=== PATIENT | male | born 1960 | race Caucasian/White ===

== ENCOUNTER 2017-03-09 22:28 | Emergency (ER) | payer OTHER ==
[~2017-03-09] VITALS: Ht 185.4 cm; Wt 108.0 kg
[~2017-03-09 22:28] MED LIST: BENTYL 10 MG CA10 M1 PO; CLONAZEPAM 0.50.5 M1 PO; COLACE 100 MG100 MG PO; ERYTHROMYCIN E3.5 G3 OPHTHALMIC; MIRALAX17 GM PO; NOHOMEMEDICATIONS; PERCOCET PO; VITAMIN D 5050000 I1 PO
[2017-03-09 22:56] LABS: URINE BILIRUBIN NEGATIVE (Negative); URINE BLOOD NEGATIVE (Negative); URINE COLOR YELLOW; URINE GLUCOSE-RANDOM* NEGATIVE (Negative); URINE KETONES NEGATIVE (Negative); URINE NITRITE NEGATIVE (Negative); URINE PROTEIN (DIPSTICK) NEGATIVE (Negative); URINE UROBILINOGEN 0.2 E.U./dl (0.2-1.0)
[2017-03-09 23:16] LABS: BASOPHILS 0.4 % (0.0-2.0); EOSINOPHILS 1.1 % (0.0-3.0); HEMATOCRIT 44.6 % (42.0-52.0); HEMOGLOBIN 15.4 gm/dL (14.0-18.0); LYMPHOCYTES 11.9 % (24.0-44.0); MCH 32.5 pg (26.0-34.0); MCHC 34.5 g/dL (28.0-37.0); MCV 94.4 fL (80.0-100.0); MONOCYTES 8.7 % (1.0-8.0); PLATELET COUNT 214 thou/uL (150-400); POLYS 77.9 % (36.0-66.0); RBC 4.72 mil/uL (4.50-6.00); RDW 13.3 % (10.5-14.5); WBC 6.5 thou/uL (4.0-11.0)
[2017-03-09 23:22] LABS: ANION GAP 7 mmol/L (7-16); BUN 14 mg/dL (7-18); CALCIUM 9.3 mg/dL (8.5-10.1); CHLORIDE 101 mmol/L (98-107); CO2 32 mmol/L (21-32); GLUCOSE 112 mg/dL (74-106); POTASSIUM 3.8 mmol/L (3.5-5.1); SODIUM 140 mmol/L (136-145)
[2017-03-09 23:28] LABS: ALBUMIN 3.7 g/dL (3.4-5.0); ALKALINE PHOSPHATASE 67 U/L (46-116); DIRECT BILIRUBIN < 0.1 mg/dL (<0.1-0.3); SGOT 22 U/L (15-37); SGPT 39 U/L (30-65); TOTAL BILIRUBIN 0.7 mg/dL (<0.1-1.0)
[2017-03-09 23:29] LABS: MANUAL DIFF NO
[2017-03-10] MEDS ORDERED: CITRATE OF MAG296 ML PO (00:32)
[2017-03-10] MEDS ORDERED: SENOKOT-S1 TA1 PO (00:32)
[2017-03-10] MEDS ORDERED: PHENERGAN 25 MG25 M1 PO (00:39)
== END 2017-03-10 00:32 | disposition home or self-care (01) ==
LOC: ER 22:28
PROVIDERS: Emergency Medicine
DX: R10.9 Unspecified abdominal pain (principal); R11.2 Nausea with vomiting, unspecified; Z90.49 Acquired absence of other specified parts of digestive tract; Z98.890 Other specified postprocedural states

== ENCOUNTER 2017-05-12 18:01 | Emergency (ER) | payer OTHER ==
[~2017-05-12] VITALS: Ht 188 cm; Wt 108.0 kg
[~2017-05-12 18:01] MED LIST changes: +CITRATE OF MAG296 ML PO; +PHENERGAN 25 MG25 M1 PO; +SENOKOT-S1 TA1 PO
[2017-05-12] MEDS ORDERED: MEDROLDOSEPACK PO (19:57)
[2017-05-12] MEDS ORDERED: IBUPROFEN 600600 M1 PO (19:57)
[2017-05-12] MEDS ORDERED: NORCO 5-325 TA1 EACH PO (19:57)
[2017-05-12] MEDS ORDERED: TIZANIDINE HCL4 MG PO (19:57)
== END 2017-05-12 20:05 | disposition home or self-care (01) ==
LOC: ER 18:01
DX: S39.012A Strain of muscle, fascia and tendon of lower back, initial encounter (principal); M54.42 Lumbago with sciatica, left side; Z98.890 Other specified postprocedural states; Z90.49 Acquired absence of other specified parts of digestive tract; W06.XXXA Fall from bed, initial encounter; Y93.89 Activity, other specified; Y92.89 Other specified places as the place of occurrence of the external cause; Y99.8 Other external cause status

== ENCOUNTER 2018-08-07 11:42 | Emergency (ER) | payer OTHER ==
[~2018-08-07] VITALS: Ht 185.4 cm; Wt 113.4 kg
[~2018-08-07 11:42] MED LIST changes: +IBUPROFEN 600600 M1 PO; +MEDROLDOSEPACK PO; +NORCO 5-325 TA1 EACH PO; +TIZANIDINE HCL4 MG PO
[2018-08-07 12:07] LABS: ABSOLUTE NEUTROPHILS 10.1 thou/uL (1.4-8.2); BASOPHILS 0.2 % (0.0-2.0); EOSINOPHILS 0.4 % (0.0-3.0); HEMATOCRIT 47.9 % (42.0-52.0); HEMOGLOBIN 16.5 gm/dL (14.0-18.0); LYMPHOCYTES 2.1 % (24.0-44.0); MCH 33.1 pg (26.0-34.0); MCHC 34.5 g/dL (28.0-37.0); MCV 96.1 fL (80.0-100.0); MONOCYTES 5.2 % (1.0-8.0); PLATELET COUNT 205 thou/uL (150-400); POLYS 92.1 % (36.0-66.0); RBC 4.98 mil/uL (4.50-6.00); RDW 12.9 % (10.5-14.5); WBC 10.9 thou/uL (4.0-11.0)
[2018-08-07] MEDS ORDERED: NYQUIL PO (12:11)
[2018-08-07 12:15] LABS: ANION GAP 7 mmol/L (7-16); BUN 16 mg/dL (7-18); CALCIUM 9.4 mg/dL (8.5-10.1); CHLORIDE 102 mmol/L (98-107); CO2 27 mmol/L (21-32); CREATININE 1.1 mg/dL (0.7-1.3); GLUCOSE 156 mg/dL (74-106); POTASSIUM 4.5 mmol/L (3.5-5.1); SODIUM 136 mmol/L (136-145)
[2018-08-07 12:23] LABS: ALBUMIN 3.9 g/dL (3.4-5.0); LIPASE 113 U/L (73-393); SGOT 23 U/L (15-37); SGPT 42 U/L (30-65); TOTAL BILIRUBIN 0.9 mg/dL (<0.1-1.0); TOTAL PROTEIN 7.2 g/dL (6.4-8.2); TROPONIN-I <0.06 ng/mL (<0.06)
[2018-08-07 13:05] LABS: URINE BILIRUBIN NEGATIVE (Negative); URINE BLOOD NEGATIVE (Negative); URINE CLARITY CLEAR; URINE COLOR YELLOW; URINE GLUCOSE-RANDOM* NEGATIVE (Negative); URINE KETONES TRACE (Negative); URINE LEUKOCYTES-REFLEX NEGATIVE (Negative); URINE NITRITE-REFLEX NEGATIVE (Negative); URINE PROTEIN (DIPSTICK) NEGATIVE (Negative); URINE UROBILINOGEN 0.2 E.U./dl (0.2-1.0)
[2018-08-07 13:28] LABS: SSA (PROTEIN CONFIRMATORY) NEGATIVE (Negative)
--- NOTE | 2018-08-07 13:43 | EKG ---
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
[2018-08-07 15:45] VITALS: BP 114/58
== END 2018-08-07 14:50 | disposition home or self-care (01) ==
LOC: ER 11:42
PROVIDERS: Nurse Practitioner Family
DX: R19.7 Diarrhea, unspecified (principal); R11.2 Nausea with vomiting, unspecified

== ENCOUNTER 2018-09-10 17:28 | Emergency (ER) | payer OTHER ==
[~2018-09-10] VITALS: Ht 185.4 cm; Wt 105.7 kg
[~2018-09-10 17:28] MED LIST changes: +NYQUIL PO
[2018-09-10 19:29] LABS: HEMOGLOBIN 15.5 gm/dL (14.0-18.0); MCH 33.7 pg (26.0-34.0); MCHC 35.2 g/dL (28.0-37.0); MCV 95.8 fL (80.0-100.0); PLATELET COUNT 184 thou/uL (150-400); RBC 4.59 mil/uL (4.50-6.00); RDW 12.6 % (10.5-14.5); WBC 4.9 thou/uL (4.0-11.0)
[2018-09-10 19:46] LABS: CALCIUM 9.5 mg/dL (8.5-10.1); POTASSIUM 4.1 mmol/L (3.5-5.1)
[2018-09-10 19:52] LABS: ALBUMIN 3.6 g/dL (3.4-5.0); TOTAL BILIRUBIN 0.4 mg/dL (<0.1-1.0); TOTAL PROTEIN 6.8 g/dL (6.4-8.2)
[2018-09-10] MEDS ORDERED: ZPAK PO (20:18)
[2018-09-10] MEDS ORDERED: PROMETHAZINE V118 M1 PO (20:18)
[2018-09-10] MEDS ORDERED: MUCINEX DM ER1 EACH PO (20:18)
[2018-09-10 20:19] LABS: ABSOLUTE NEUTROPHILS 4.1 thou/uL (1.4-8.2); ANISOCYTOSIS 1+
[2018-09-10 20:34] VITALS: BP 130/58
[2018-09-11] MEDS ORDERED: TESSALON PERLE100 MG PO (07:57)
== END 2018-09-10 20:35 | disposition home or self-care (01) ==
LOC: ER 17:28
PROVIDERS: Physician Assistant
DX: J20.8 Acute bronchitis due to other specified organisms (principal); B96.89 Other specified bacterial agents as the cause of diseases classified elsewhere; Z90.49 Acquired absence of other specified parts of digestive tract; Z98.52 Vasectomy status

== ENCOUNTER 2018-09-11 05:47 | Emergency (ER) | payer OTHER ==
[~2018-09-11] VITALS: Ht 185.4 cm; Wt 104.3 kg
[~2018-09-11 05:47] MED LIST changes: +MUCINEX DM ER1 EACH PO; +PROMETHAZINE V118 M1 PO; +ZPAK PO
[2018-09-11 06:33] LABS: ABSOLUTE NEUTROPHILS 4.8 thou/uL (1.4-8.2); BASOPHILS 0.4 % (0.0-2.0); EOSINOPHILS 0.5 % (0.0-3.0); HEMATOCRIT 43.4 % (42.0-52.0); HEMOGLOBIN 14.9 gm/dL (14.0-18.0); LYMPHOCYTES 7.4 % (24.0-44.0); MCH 32.9 pg (26.0-34.0); MCHC 34.3 g/dL (28.0-37.0); PLATELET COUNT 173 thou/uL (150-400); POLYS 81.7 % (36.0-66.0); RBC 4.52 mil/uL (4.50-6.00); RDW 13.1 % (10.5-14.5); WBC 5.9 thou/uL (4.0-11.0)
[2018-09-11 06:47] LABS: CREATININE 1.1 mg/dL (0.7-1.3); POTASSIUM 4.1 mmol/L (3.5-5.1)
[2018-09-11 06:54] LABS: ALBUMIN 3.6 g/dL (3.4-5.0); DIRECT BILIRUBIN 0.1 mg/dL (<0.1-0.3); TOTAL BILIRUBIN 0.5 mg/dL (<0.1-1.0); TOTAL PROTEIN 6.8 g/dL (6.4-8.2)
[2018-09-11] MEDS ORDERED: TESSALON PERLE100 MG PO (07:57)
[2018-09-11 08:00] LABS: URINE BILIRUBIN NEGATIVE (Negative); URINE BLOOD NEGATIVE (Negative); URINE CLARITY CLEAR; URINE COLOR YELLOW; URINE GLUCOSE-RANDOM* NEGATIVE (Negative); URINE KETONES NEGATIVE (Negative); URINE LEUKOCYTES-REFLEX NEGATIVE (Negative); URINE NITRITE-REFLEX NEGATIVE (Negative); URINE PROTEIN (DIPSTICK) NEGATIVE (Negative); URINE UROBILINOGEN 0.2 E.U./dl (0.2-1.0)
[2018-09-11 08:01] VITALS: BP 115/72
--- NOTE | 2018-09-11 08:18 | EKG ---
[place] [address] [address] [place] [address] ELECTROCARDIOGRAM REPORT Name: PALMIRA NUÑEZ Room #: DEP Vito#: [id number] Admission: 09/11/18 Attend Phys: Discharge: 09/11/18 Date of : 56 Report #: [id number] THIS REPORT FOR: //name// [facility] ED Test Date: 2018-09-11 Test Time: 06:58:44 Pat Name: PALMIRA NUÑEZ Department: Room: Gender: Court Stenographer: : 1960 Requested By: Kwesi Hartman Order Number: [id number] MD: Umair Gutierres Measurements Intervals [place] Rate: 82 P: 47 [place]: 165 QRS: -17 QRSD: 89 T: 33 QT: 351 QTc: 410 Interpretive Statements Sinus rhythm Atrial premature complexes Borderline left axis deviation Abnormal R-wave progression, early transition Borderline T wave abnormalities Compared to ECG 08/07/2018 11:51:28 Atrial premature complex(es) now present Electronically Signed On 09-11-2018 8:18:33 PHOTOGRAPHERS' MODEL by Umair Gutierres [email or web address] <ELECTRONICALLY SIGNED> By: Umair Gutierres MD, [facility] 09/11/18 08 7 Umair Gutierres MD, [facility] /EPI
== END 2018-09-11 08:01 | disposition home or self-care (01) ==
LOC: ER 05:47
PROVIDERS: Emergency Medicine
DX: J22 Unspecified acute lower respiratory infection (principal); Z98.52 Vasectomy status; Z90.49 Acquired absence of other specified parts of digestive tract

== ENCOUNTER 2018-11-21 17:36 | Emergency (ER) | payer OTHER ==
[~2018-11-21] VITALS: Ht 185.4 cm; Wt 108.0 kg
[~2018-11-21 17:36] MED LIST changes: +TESSALON PERLE100 MG PO
[2018-11-21] MEDS ORDERED: TESSALON PERLE100 MG PO (20:17)
[2018-11-21] MEDS ORDERED: GUAIFEN-CODEINE10 ML PO (20:17)
[2018-11-21 20:18] VITALS: BP 150/86
== END 2018-11-21 20:27 | disposition home or self-care (01) ==
LOC: ER 17:36
DX: J06.9 Acute upper respiratory infection, unspecified (principal); Z90.49 Acquired absence of other specified parts of digestive tract

== ENCOUNTER 2019-01-14 12:28 | Emergency (ER) | payer OTHER ==
[~2019-01-14] VITALS: Ht 185.4 cm; Wt 108.9 kg
[~2019-01-14 12:28] MED LIST changes: +GUAIFEN-CODEINE10 ML PO
[2019-01-14 12:57] LABS: ABSOLUTE NEUTROPHILS 3.5 thou/uL (1.4-8.2); BASOPHILS 0.5 % (0.0-2.0); EOSINOPHILS 1.4 % (0.0-3.0); HEMATOCRIT 46.5 % (42.0-52.0); LYMPHOCYTES 17.5 % (24.0-44.0); MCH 32.3 pg (26.0-34.0); MCHC 34.4 g/dL (28.0-37.0); MCV 93.9 fL (80.0-100.0); MONOCYTES 7.2 % (1.0-8.0); PLATELET COUNT 210 thou/uL (150-400); POLYS 73.4 % (36.0-66.0); RBC 4.95 mil/uL (4.50-6.00); RDW 13.1 % (10.5-14.5); WBC 4.7 thou/uL (4.0-11.0)
[2019-01-14 13:04] LABS: CALCIUM 9.3 mg/dL (8.5-10.1); POTASSIUM 4.3 mmol/L (3.5-5.1)
[2019-01-14 13:11] LABS: ALBUMIN 3.6 g/dL (3.4-5.0); TOTAL BILIRUBIN 0.9 mg/dL (<0.1-1.0); TOTAL PROTEIN 6.8 g/dL (6.4-8.2)
[2019-01-14 13:34] LABS: URINE BILIRUBIN NEGATIVE (Negative); URINE BLOOD NEGATIVE (Negative); URINE CLARITY CLEAR; URINE COLOR YELLOW; URINE GLUCOSE-RANDOM* NEGATIVE (Negative); URINE KETONES NEGATIVE (Negative); URINE LEUKOCYTES-REFLEX NEGATIVE (Negative); URINE NITRITE-REFLEX NEGATIVE (Negative); URINE PROTEIN (DIPSTICK) NEGATIVE (Negative)
[2019-01-14] MEDS ORDERED: COMPAZINE10 MG PO (13:53)
[2019-01-14] MEDS ORDERED: BENTYL 20 MG TA20 M1 PO (13:53)
[2019-01-14] MEDS ORDERED: ZOFRAN ODT4 MG PO (13:53)
[2019-01-14 14:15] VITALS: BP 122/60
== END 2019-01-14 14:26 | disposition home or self-care (01) ==
LOC: ER 12:28
PROVIDERS: Emergency Medicine
DX: K52.9 Noninfective gastroenteritis and colitis, unspecified (principal); Z98.52 Vasectomy status; Z90.49 Acquired absence of other specified parts of digestive tract

== ENCOUNTER 2019-02-01 12:37 | Emergency (ER) | payer OTHER ==
[~2019-02-01] VITALS: Ht 180.3 cm; Wt 97.1 kg
[~2019-02-01 12:37] MED LIST changes: +BENTYL 20 MG TA20 M1 PO; +COMPAZINE10 MG PO; +ZOFRAN ODT4 MG PO
[2019-02-01] MEDS ORDERED: AUGMENTIN 875-1 EACH PO (14:32)
[2019-02-01 14:50] VITALS: BP 134/86
== END 2019-02-01 14:50 | disposition home or self-care (01) ==
LOC: ER 12:37
DX: S90.852A Superficial foreign body, left foot, initial encounter (principal); Z90.49 Acquired absence of other specified parts of digestive tract; Z98.52 Vasectomy status; W45.8XXA Other foreign body or object entering through skin, initial encounter; Y92.89 Other specified places as the place of occurrence of the external cause; Y93.89 Activity, other specified; Y99.8 Other external cause status

== ENCOUNTER 2019-03-17 19:56 | Emergency (ER) | payer OTHER ==
[~2019-03-17] VITALS: Ht 185.4 cm; Wt 108.9 kg
[~2019-03-17 19:56] MED LIST changes: +AUGMENTIN 875-1 EACH PO
[2019-03-17 20:53] LABS: ABSOLUTE NEUTROPHILS 4.2 thou/uL (1.4-8.2); BASOPHILS 1.7 % (0.0-2.0); EOSINOPHILS 1.6 % (0.0-3.0); HEMATOCRIT 43.5 % (42.0-52.0); LYMPHOCYTES 18.7 % (24.0-44.0); MCH 32.1 pg (26.0-34.0); MCHC 34.4 g/dL (28.0-37.0); MCV 93.3 fL (80.0-100.0); MONOCYTES 8.1 % (1.0-8.0); PLATELET COUNT 222 thou/uL (150-400); POLYS 69.9 % (36.0-66.0); RBC 4.66 mil/uL (4.50-6.00); RDW 13.7 % (10.5-14.5)
[2019-03-17 21:22] LABS: ANION GAP 10 mmol/L (7-16); BUN 13 mg/dL (7-18); CALCIUM 9.4 mg/dL (8.5-10.1); CHLORIDE 101 mmol/L (98-107); CO2 28 mmol/L (21-32); CREATININE 1.2 mg/dL (0.7-1.3); GLUCOSE 113 mg/dL (74-106); POTASSIUM 4.3 mmol/L (3.5-5.1); SODIUM 139 mmol/L (136-145)
[2019-03-17 21:29] LABS: ALBUMIN 3.6 g/dL (3.4-5.0); DIRECT BILIRUBIN < 0.1 mg/dL (<0.1-0.3); MAGNESIUM 1.8 mg/dL (1.8-2.4); SGOT 27 U/L (15-37); SGPT 52 U/L (30-65); TOTAL BILIRUBIN 0.3 mg/dL (<0.1-1.0); TOTAL PROTEIN 6.7 g/dL (6.4-8.2)
[2019-03-17 21:30] LABS: URINE BILIRUBIN NEGATIVE (Negative); URINE BLOOD NEGATIVE (Negative); URINE CLARITY CLEAR; URINE COLOR YELLOW; URINE GLUCOSE-RANDOM* NEGATIVE (Negative); URINE KETONES NEGATIVE (Negative); URINE LEUKOCYTES-REFLEX NEGATIVE (Negative); URINE NITRITE-REFLEX NEGATIVE (Negative); URINE PROTEIN (DIPSTICK) NEGATIVE (Negative); URINE UROBILINOGEN 0.2 E.U./dl (0.2-1.0)
[2019-03-17 22:13] VITALS: BP 136/83
--- NOTE | 2019-03-19 13:53 | EKG ---
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 03/19/19 1353 07 07 Umair Gutierres MD, FACC /EPI
== END 2019-03-17 22:23 | disposition home or self-care (01) ==
LOC: ER 19:56
PROVIDERS: Emergency Medicine
DX: R42 Dizziness and giddiness (principal); Z90.49 Acquired absence of other specified parts of digestive tract; Z98.52 Vasectomy status

== ENCOUNTER 2019-05-21 19:53 | Emergency (ER) | payer OTHER ==
[~2019-05-21] VITALS: Ht 185.4 cm; Wt 113.4 kg
[2019-05-21] MEDS ORDERED: NYQUIL (20:00)
[2019-05-21 20:37] LABS: ABSOLUTE NEUTROPHILS 3.9 thou/uL (1.4-8.2); BASOPHILS 1.1 % (0.0-2.0); EOSINOPHILS 0.7 % (0.0-3.0); HEMATOCRIT 44.1 % (42.0-52.0); HEMOGLOBIN 15.1 gm/dL (14.0-18.0); LYMPHOCYTES 19.2 % (24.0-44.0); MCH 32.4 pg (26.0-34.0); MCHC 34.1 g/dL (28.0-37.0); MONOCYTES 6.2 % (1.0-8.0); PLATELET COUNT 232 thou/uL (150-400); POLYS 72.8 % (36.0-66.0); RBC 4.64 mil/uL (4.50-6.00); RDW 13.2 % (10.5-14.5); WBC 5.4 thou/uL (4.0-11.0)
[2019-05-21 20:48] LABS: ANION GAP 9 mmol/L (7-16); BUN 13 mg/dL (7-18); CALCIUM 9.5 mg/dL (8.5-10.1); CHLORIDE 99 mmol/L (98-107); CO2 28 mmol/L (21-32); CREATININE 1.1 mg/dL (0.7-1.3); GLUCOSE 169 mg/dL (74-106); POTASSIUM 3.9 mmol/L (3.5-5.1); SODIUM 136 mmol/L (136-145)
[2019-05-21 20:50] LABS: APTT 27.8 Seconds (24.5-32.8); PROTIME 10.2 Seconds (9.3-11.4)
[2019-05-21 20:56] LABS: ALBUMIN 3.7 g/dL (3.4-5.0); DIRECT BILIRUBIN < 0.1 mg/dL (<0.1-0.3); SGOT 17 U/L (15-37); SGPT 30 U/L (30-65); TOTAL BILIRUBIN 0.3 mg/dL (<0.1-1.0)
[2019-05-21] MEDS ORDERED: LACTULOSE PO (23:47)
[2019-05-22 00:33] VITALS: BP 140/81
--- NOTE | 2019-05-22 11:07 | EKG ---
[place] [address] [address] [place] [address] ELECTROCARDIOGRAM REPORT Name: PALMIRA NUÑEZ Room #: DEP Vito#: [id number] Admission: 05/21/19 Attend Phys: Discharge: 05/22/19 Date of : 56 Report #: [id number] THIS REPORT FOR: //name// [facility] ED Test Date: 2019-05-21 Test Time: 20:01:58 Pat Name: PALMIRA NUÑEZ Department: Room: Gender: M Musical Instruments Assembler: WG : 1960 Requested By: Dodie Upton Order Number: [id number] MD: Umair Gutierres Measurements Intervals [place] Rate: 84 P: 44 NC: 164 QRS: -42 QRSD: 93 T: 78 QT: 366 QTc: 433 Interpretive Statements Sinus rhythm Left anterior fascicular block Abnormal R-wave progression, early transition Left ventricular hypertrophy Borderline T abnormalities, lateral leads Compared to ECG 03/17/2019 20:08:34 T-wave abnormality now present Electronically Signed On 05-22-2019 11:07:39 CDT by Umair Gutierres [email or web address] <ELECTRONICALLY SIGNED> By: Umair Gutierres MD, FAC 05/22/19 1100 00 00 Umair Gutierres MD, [facility] /EPI
== END 2019-05-22 00:34 | disposition home or self-care (01) ==
LOC: ER 19:53
PROVIDERS: Emergency Medicine
DX: K42.9 Umbilical hernia without obstruction or gangrene (principal); Z90.79 Acquired absence of other genital organ(s); Z90.49 Acquired absence of other specified parts of digestive tract; Z98.890 Other specified postprocedural states

== ENCOUNTER 2019-07-06 22:47 | Emergency (ER) | payer OTHER ==
[~2019-07-06] VITALS: Ht 185.4 cm; Wt 106.6 kg
[~2019-07-06 22:47] MED LIST changes: +LACTULOSE PO; +NYQUIL
[2019-07-06] MEDS ORDERED: TRAMADOL 50 MG50 MG PO (22:53)
[2019-07-06] MEDS ORDERED: CLEOCIN HCL150 M1 PO (22:54)
[2019-07-06 23:19] LABS: ABSOLUTE NEUTROPHILS 4.6 thou/uL (1.4-8.2); BASOPHILS 0.6 % (0.0-2.0); EOSINOPHILS 1.8 % (0.0-3.0); HEMATOCRIT 48.1 % (42.0-52.0); HEMOGLOBIN 16.3 gm/dL (14.0-18.0); LYMPHOCYTES 15.5 % (24.0-44.0); MCH 32.6 pg (26.0-34.0); MCHC 33.9 g/dL (28.0-37.0); MCV 96.1 fL (80.0-100.0); MONOCYTES 6.3 % (1.0-8.0); PLATELET COUNT 275 thou/uL (150-400); POLYS 75.8 % (36.0-66.0); RDW 12.7 % (10.5-14.5); WBC 6.1 thou/uL (4.0-11.0)
[2019-07-06 23:23] LABS: ANION GAP 9 mmol/L (7-16); BUN 20 mg/dL (7-18); CALCIUM 9.4 mg/dL (8.5-10.1); CHLORIDE 101 mmol/L (98-107); CO2 29 mmol/L (21-32); CREATININE 1.1 mg/dL (0.7-1.3); GLUCOSE 116 mg/dL (74-106); POTASSIUM 4.4 mmol/L (3.5-5.1); SODIUM 139 mmol/L (136-145)
[2019-07-06 23:32] LABS: MAGNESIUM 2.1 mg/dL (1.8-2.4); TROPONIN-I <0.06 ng/mL (<0.06)
[2019-07-07 00:45] VITALS: BP 136/81
--- NOTE | 2019-07-07 08:43 | EKG ---
[place] [address] [address] [place] [address] ELECTROCARDIOGRAM REPORT Name: PALMIRA NUÑEZ Room #: DEP MOLLY Padron#: [id number] Admission: 07/06/19 Attend Phys: Discharge: 07/07/19 Date of : 56 Report #: [id number] THIS REPORT FOR: //name// [facility] ED Test Date: 2019-07-06 Test Time: 22:54:25 Pat Name: PALMIRA UNÑEZ Department: Room: Gender: M Technology Adoption Manager: WG : 1960 Requested By: Kwesi Hartman Order Number: [id number] MD: Umair Gutierres Measurements Intervals [place] Rate: 74 P: -7 LA: 124 QRS: -33 QRSD: 95 T: 20 QT: 423 QTc: 470 Interpretive Statements Sinus rhythm Nonspecific T wave abnormality Compared to ECG 05/21/2019 20:01:58 No significant change was found Electronically Signed On 07-07-2019 8:42:48 LAYDOWN MACHINE OPERATOR by Umair Gutierres [email or web address] <ELECTRONICALLY SIGNED> By: Umair Gutierres MD, [facility] 07/07/19 0842 2254 2254 Umair Gutierres MD, FACC /EPI
== END 2019-07-07 00:45 | disposition home or self-care (01) ==
LOC: ER 22:47
PROVIDERS: Emergency Medicine
DX: R00.2 Palpitations (principal); Z79.899 Other long term (current) drug therapy; Z90.89 Acquired absence of other organs

== ENCOUNTER 2019-09-22 19:19 | Emergency (ER) | payer OTHER ==
[~2019-09-22] VITALS: Ht 185.4 cm; Wt 110.7 kg
[~2019-09-22 19:19] MED LIST changes: +CLEOCIN HCL150 M1 PO; +TRAMADOL 50 MG50 MG PO
[2019-09-22] MEDS ORDERED: METRONIDAZOLE500 M4 (19:25)
[2019-09-22] MEDS ORDERED: MIRALAX119 GM (19:25)
[2019-09-22 21:26] LABS: ABSOLUTE NEUTROPHILS 3.1 thou/uL (1.4-8.2); BASOPHILS 1.2 % (0.0-2.0); EOSINOPHILS 2.4 % (0.0-3.0); HEMATOCRIT 47.4 % (42.0-52.0); HEMOGLOBIN 15.8 gm/dL (14.0-18.0); LYMPHOCYTES 27.1 % (24.0-44.0); MCH 31.9 pg (26.0-34.0); MCHC 33.4 g/dL (28.0-37.0); MCV 95.5 fL (80.0-100.0); MONOCYTES 9.2 % (1.0-8.0); PLATELET COUNT 230 thou/uL (150-400); POLYS 60.1 % (36.0-66.0); RBC 4.96 mil/uL (4.50-6.00); RDW 13.1 % (10.5-14.5); WBC 5.1 thou/uL (4.0-11.0)
[2019-09-22 21:28] LABS: CALCIUM 9.2 mg/dL (8.5-10.1); POTASSIUM 4.3 mmol/L (3.5-5.1)
[2019-09-22 21:36] LABS: ALBUMIN 3.7 g/dL (3.4-5.0); TOTAL BILIRUBIN 0.3 mg/dL (<0.1-1.0); TOTAL PROTEIN 6.9 g/dL (6.4-8.2)
[2019-09-22] MEDS ORDERED: CITRATE OF MAG296 M1 PO (22:57)
[2019-09-22] MEDS ORDERED: GOLYTELY4000 M1 PO (22:57)
[2019-09-22 23:11] VITALS: BP 142/72
== END 2019-09-22 23:13 | disposition home or self-care (01) ==
LOC: ER 19:19
PROVIDERS: Physician Assistant
DX: K59.00 Constipation, unspecified (principal); Z90.49 Acquired absence of other specified parts of digestive tract; Z87.01 Personal history of pneumonia (recurrent)

== ENCOUNTER 2019-12-05 07:15 | Emergency (ER) | payer OTHER ==
[~2019-12-05] VITALS: Ht 185.4 cm; Wt 108.9 kg
[~2019-12-05 07:15] MED LIST changes: +CITRATE OF MAG296 M1 PO; +GOLYTELY4000 M1 PO; +METRONIDAZOLE500 M4; +MIRALAX119 GM
[2019-12-05 08:39] LABS: ANION GAP 8 mmol/L (7-16); BUN 19 mg/dL (7-18); CALCIUM 8.8 mg/dL (8.5-10.1); CHLORIDE 102 mmol/L (98-107); CO2 26 mmol/L (21-32); CREATININE 1.1 mg/dL (0.7-1.3); GLUCOSE 99 mg/dL (74-106); POTASSIUM 3.8 mmol/L (3.5-5.1); SODIUM 136 mmol/L (136-145)
[2019-12-05 08:40] LABS: ABSOLUTE NEUTROPHILS 3.1 thou/uL (1.4-8.2); BASOPHILS 0.7 % (0.0-2.0); EOSINOPHILS 2.2 % (0.0-3.0); HEMATOCRIT 43.8 % (42.0-52.0); HEMOGLOBIN 15.2 gm/dL (14.0-18.0); LYMPHOCYTES 18.1 % (24.0-44.0); MCH 33.3 pg (26.0-34.0); MCHC 34.7 g/dL (28.0-37.0); MONOCYTES 9.7 % (1.0-8.0); PLATELET COUNT 227 thou/uL (150-400); POLYS 69.3 % (36.0-66.0); RBC 4.56 mil/uL (4.50-6.00); RDW 13.1 % (10.5-14.5); WBC 4.5 thou/uL (4.0-11.0)
[2019-12-05 08:50] LABS: ALBUMIN 3.6 g/dL (3.4-5.0); SGOT 29 U/L (15-37); SGPT 47 U/L (30-65); TOTAL BILIRUBIN 0.7 mg/dL (<0.1-1.0); TOTAL PROTEIN 6.9 g/dL (6.4-8.2); TROPONIN-I <0.06 ng/mL (<0.06)
[2019-12-05] MEDS ORDERED: AUGMENTIN 875-1 EACH PO (09:41)
--- NOTE | 2019-12-05 10:26 | EKG ---
[facility] [place] [address] [place] [address] ELECTROCARDIOGRAM REPORT Name: PALMIRA NUÑEZ Room #: REG [facility].#: [id number] Admission: 12/05/19 Attend Phys: Discharge: Date of : 56 Report #: [id number] THIS REPORT FOR: cc: Zac Pat MD, Jeffrey A. MD Lundgren,Umair Cabrera MD [facility] ~ THIS REPORT FOR: //name// [facility] ED Test Date: 2019-12-05 Test Time: 08:09:52 Pat Name: PALMIRA NUÑEZ Department: Room: Gender: M Passenger Train Braker: [place] : 1960 Requested By: Sparkle Daly Order Number: [id number] MD: Umair Gutierres Measurements Intervals [place] Rate: 65 P: 56 LA: 169 QRS: -25 QRSD: 92 T: 6 QT: 399 QTc: 415 Interpretive Statements Sinus rhythm Borderline left axis deviation Abnormal R-wave progression, early transition Borderline T abnormalities, inferior leads Baseline wander in lead(s) V4 Compared to ECG 07/06/2019 22:54:25 No significant changes Electronically Signed On 12-05-2019 10:24:42 CDT by Umair Gutierres [email or web address] <ELECTRONICALLY SIGNED> By: Umair Gutierres MD, [facility] 12/05/19 [phone] 0809 Umair Gutierres MD, [facility] /EPI
[2019-12-05 10:30] VITALS: BP 123/60
== END 2019-12-05 10:30 | disposition home or self-care (01) ==
LOC: ER 07:15
PROVIDERS: Emergency Medicine Emergency Medical Services
DX: R06.00 Dyspnea, unspecified (principal); Z20.828 Contact with and (suspected) exposure to other viral communicable diseases; R05 Cough; R50.9 Fever, unspecified; J44.9 Chronic obstructive pulmonary disease, unspecified; Z98.890 Other specified postprocedural states; Z90.49 Acquired absence of other specified parts of digestive tract; Z79.899 Other long term (current) drug therapy

== ENCOUNTER 2020-01-08 17:47 | Emergency (ER) | payer OTHER ==
[~2020-01-08] VITALS: Ht 185.4 cm; Wt 110.7 kg
[2020-01-08 18:17] LABS: URINE BILIRUBIN NEGATIVE (Negative); URINE BLOOD NEGATIVE (Negative); URINE CLARITY CLEAR; URINE COLOR YELLOW; URINE GLUCOSE-RANDOM* NEGATIVE (Negative); URINE KETONES NEGATIVE (Negative); URINE LEUKOCYTES-REFLEX NEGATIVE (Negative); URINE NITRITE-REFLEX NEGATIVE (Negative); URINE PROTEIN (DIPSTICK) NEGATIVE (Negative); URINE UROBILINOGEN 0.2 E.U./dl (0.2-1.0)
[2020-01-08 18:21] LABS: ABSOLUTE NEUTROPHILS 4.5 thou/uL (1.4-8.2); BASOPHILS 1.3 % (0.0-2.0); EOSINOPHILS 1.2 % (0.0-3.0); HEMATOCRIT 43.9 % (42.0-52.0); HEMOGLOBIN 15.6 gm/dL (14.0-18.0); LYMPHOCYTES 16.2 % (24.0-44.0); MCHC 35.4 g/dL (28.0-37.0); MCV 95.9 fL (80.0-100.0); MONOCYTES 5.8 % (1.0-8.0); PLATELET COUNT 226 thou/uL (150-400); POLYS 75.5 % (36.0-66.0); RBC 4.58 mil/uL (4.50-6.00); RDW 12.8 % (10.5-14.5)
[2020-01-08 18:27] LABS: ANION GAP 5 mmol/L (7-16); BUN 14 mg/dL (7-18); CALCIUM 9.2 mg/dL (8.5-10.1); CHLORIDE 100 mmol/L (98-107); CO2 30 mmol/L (21-32); CREATININE 1.1 mg/dL (0.7-1.3); GLUCOSE 158 mg/dL (74-106); SODIUM 135 mmol/L (136-145)
[2020-01-08 18:38] LABS: ALBUMIN 3.5 g/dL (3.4-5.0); MAGNESIUM 1.9 mg/dL (1.8-2.4); SGOT 32 U/L (15-37); SGPT 58 U/L (30-65); TOTAL BILIRUBIN 0.4 mg/dL (0.2-1.0); TOTAL PROTEIN 6.7 g/dL (6.4-8.2); TROPONIN-I <0.06 ng/mL (<0.06)
[2020-01-08] MEDS ORDERED: ONDANSETRON HCL4 M2 PO (18:44)
[2020-01-08] MEDS ORDERED: OMEPRAZOLE 20 M20 M1 PO (18:53)
[2020-01-08] MEDS ORDERED: LIPITOR 20 MG T20 M1 PO (18:53)
[2020-01-08 19:11] VITALS: BP 172/94
--- NOTE | 2020-01-09 08:46 | EKG ---
[facility] [place] [address] ELECTROCARDIOGRAM REPORT Name: PALMIRA NUÑEZ Room #: DEP [facility].#: [id number] Admission: 01/08/20 Attend Phys: Discharge: 01/08/20 Date of : 56 Report #: [id number] THIS REPORT FOR: cc: Zac Pat MD, Jeffrey A. MD Park, Jin S. MD ~ THIS REPORT FOR: //name// [facility] ED Test Date: 2020-01-08 Test Time: 18:12:33 Pat Name: PALMIRA NUÑEZ Department: Room: Gender: M Housekeeper Nanny: : 1960 Requested By: Denise White Order Number: [id number] MD: Dewayne Keenan Measurements Intervals [place] Rate: 76 P: -45 MD: 165 QRS: -33 QRSD: 90 T: 12 QT: 379 QTc: 427 Interpretive Statements Sinus or ectopic atrial rhythm Atrial premature complexes Left ventricular hypertrophy Compared to ECG 12/05/2019 08:09:52 Ectopic atrial rhythm now present Atrial premature complex(es) now present Left ventricular hypertrophy now present Sinus rhythm no longer present T-wave abnormality no longer present Electronically Signed On 01-09-2020 8:45:12 CDT by Dewayne Keenan [email or web address] <ELECTRONICALLY SIGNED> By: Dewayne Keenan MD 01/09/20 0845 11 11 Dewayne Keenan MD /EPI
== END 2020-01-08 19:15 | disposition home or self-care (01) ==
LOC: ER 17:47
PROVIDERS: Physician Assistant
DX: M79.18 Myalgia, other site (principal); T46.6X5A Adverse effect of antihyperlipidemic and antiarteriosclerotic drugs, initial encounter; M79.601 Pain in right arm; M79.602 Pain in left arm; M79.604 Pain in right leg; M79.605 Pain in left leg; R53.83 Other fatigue; R00.2 Palpitations; R42 Dizziness and giddiness; R35.0 Frequency of micturition; Y92.89 Other specified places as the place of occurrence of the external cause; R11.0 Nausea; R68.83 Chills (without fever); M54.9 Dorsalgia, unspecified; J44.9 Chronic obstructive pulmonary disease, unspecified; Z79.899 Other long term (current) drug therapy

== ENCOUNTER 2020-10-09 09:12 | Emergency (ER) | payer OTHER ==
[~2020-10-09] VITALS: Ht 185.4 cm; Wt 112.5 kg
[~2020-10-09 09:12] MED LIST changes: +LIPITOR 20 MG T20 M1 PO; +OMEPRAZOLE 20 M20 M1 PO; +ONDANSETRON HCL4 M2 PO
[2020-10-09 10:17] LABS: ABSOLUTE NEUTROPHILS 2.6 thou/uL (1.4-8.2); BASOPHILS 0.9 % (0.0-2.0); EOSINOPHILS 2.3 % (0.0-3.0); HEMATOCRIT 44.9 % (42.0-52.0); HEMOGLOBIN 15.1 gm/dL (14.0-18.0); LYMPHOCYTES 20.5 % (24.0-44.0); MCH 32.5 pg (26.0-34.0); MCHC 33.6 g/dL (28.0-37.0); MCV 96.6 fL (80.0-100.0); MONOCYTES 9.3 % (1.0-8.0); PLATELET COUNT 216 thou/uL (150-400); RBC 4.65 mil/uL (4.50-6.00); RDW 13.2 % (10.5-14.5); WBC 3.9 thou/uL (4.0-11.0)
[2020-10-09 10:18] LABS: URINE BILIRUBIN NEGATIVE (Negative); URINE BLOOD NEGATIVE (Negative); URINE CLARITY CLEAR; URINE COLOR YELLOW; URINE GLUCOSE-RANDOM* NEGATIVE (Negative); URINE KETONES NEGATIVE (Negative); URINE LEUKOCYTES-REFLEX NEGATIVE (Negative); URINE NITRITE-REFLEX NEGATIVE (Negative); URINE PROTEIN (DIPSTICK) NEGATIVE (Negative); URINE SPECIFIC GRAVITY 1.025 (1.005-1.035); URINE UROBILINOGEN 0.2 E.U./dl (0.2-1.0)
[2020-10-09 10:30] LABS: CALCIUM 8.8 mg/dL (8.5-10.1); CREATININE 1.4 mg/dL (0.7-1.3); POTASSIUM 3.8 mmol/L (3.5-5.1)
[2020-10-09 10:37] LABS: ALBUMIN 3.4 g/dL (3.4-5.0); TOTAL BILIRUBIN 0.7 mg/dL (0.2-1.0); TOTAL PROTEIN 6.4 g/dL (6.4-8.2)
[2020-10-09 10:47] LABS: APTT 24.8 Seconds (24.5-32.8); PROTIME 10.8 Seconds (9.3-11.4)
[2020-10-09 11:36] VITALS: BP 136/71
[2020-10-09] MEDS ORDERED: PROCTOFOAM-HC 110 GM RECTAL (11:52)
[2020-10-09] MEDS ORDERED: KRISTALOSE20 GM PO (11:52)
--- NOTE | 2020-10-10 07:18 | EKG ---
[facility] [address] [place] [place] [address] ELECTROCARDIOGRAM REPORT Name: PALMIRA NUÑEZ Room #: DEP Vito#: [id number] Admission: 10/09/20 Attend Phys: Discharge: 10/09/20 Date of : 56 Report #: [id number] [facility] ED Test Date: 2020-10-09 Test Time: 10:31:11 Pat Name: PALMIRA NUÑEZ Department: Room: Gender: M Health Care Liaison: CASSIDY : 1960 Requested By: Bi Bo Order Number: [id number] MD: Chaz Marley Measurements Intervals [place] Rate: 66 P: -56 VA: 138 QRS: -16 QRSD: 91 T: 31 QT: 410 QTc: 430 Interpretive Statements Sinus or ectopic atrial rhythm Atrial premature complex Borderline left axis deviation Baseline wander in lead(s) I Compared to ECG 01/08/2020 18:12:33 Left ventricular hypertrophy no longer present Electronically Signed On 10-10-2020 7:18:09 CDT by Chaz Marley [email or web address] <ELECTRONICALLY SIGNED> By: Chaz Marley MD, [facility] 10/10/20 0718 103 103 Chaz Marley MD, FAC /EPI
== END 2020-10-09 12:10 | disposition home or self-care (01) ==
LOC: ER 09:12
PROVIDERS: Emergency Medicine
DX: K64.4 Residual hemorrhoidal skin tags (principal); R10.84 Generalized abdominal pain; J44.9 Chronic obstructive pulmonary disease, unspecified; Z79.899 Other long term (current) drug therapy

== ENCOUNTER 2020-12-14 18:51 | Emergency (ER) | payer OTHER ==
[~2020-12-14] VITALS: Ht 185.4 cm; Wt 112.5 kg
[~2020-12-14 18:51] MED LIST changes: +KRISTALOSE20 GM PO; +PROCTOFOAM-HC 110 GM RECTAL
[2020-12-14] MEDS ORDERED: [UNRECOGNIZED DRUG - OTHER] PO (19:04)
[2020-12-14 19:34] LABS: ABSOLUTE NEUTROPHILS 5.8 thou/uL (1.4-8.2); BASOPHILS 0.9 % (0.0-2.0); EOSINOPHILS 1.1 % (0.0-3.0); HEMOGLOBIN 15.2 gm/dL (14.0-18.0); LYMPHOCYTES 14.6 % (24.0-44.0); MCH 32.6 pg (26.0-34.0); MCHC 33.8 g/dL (28.0-37.0); MCV 96.4 fL (80.0-100.0); MONOCYTES 8.2 % (1.0-8.0); PLATELET COUNT 220 thou/uL (150-400); POLYS 75.2 % (36.0-66.0); RBC 4.67 mil/uL (4.50-6.00); RDW 12.8 % (10.5-14.5); WBC 7.7 thou/uL (4.0-11.0)
[2020-12-14 19:36] LABS: ANION GAP 8 mmol/L (7-16); BUN 17 mg/dL (7-18); CALCIUM 9.6 mg/dL (8.5-10.1); CHLORIDE 100 mmol/L (98-107); CO2 28 mmol/L (21-32); CREATININE 1.2 mg/dL (0.7-1.3); GLUCOSE 98 mg/dL (74-106); SODIUM 136 mmol/L (136-145)
[2020-12-14 19:47] LABS: ALBUMIN 3.9 g/dL (3.4-5.0); AMYLASE 30 U/L (25-115); DIRECT BILIRUBIN < 0.1 mg/dL (<0.1-0.2); LIPASE 90 U/L (73-393); PHOSPHORUS 3.8 mg/dL (2.6-4.7); SGOT 18 U/L (15-37); SGPT 35 U/L (16-63); TOTAL BILIRUBIN 0.4 mg/dL (0.2-1.0); TOTAL PROTEIN 6.9 g/dL (6.4-8.2); TROPONIN-I <0.06 ng/mL (<0.06)
[2020-12-14 20:45] VITALS: BP 140/80
--- NOTE | 2020-12-15 08:20 | EKG ---
[facility] [place] [address] ELECTROCARDIOGRAM REPORT Name: PALMIRA NUÑEZ [id number] Admission: 12/14/20 Attend Phys: Discharge: 12/14/20 Date of : 56 Report #: [id number] [facility] ED Test Date: 2020-12-14 Test Time: 18:59:49 Pat Name: PALMIRA NUÑEZ Department: Room: Gender: M Electrical And Instrument Technician: KAMRON : 1960 Requested By: Raymond Dawson Order Number: [id number] MD: Chaz Marley Measurements Intervals [place] Rate: 73 P: 58 [place]: 164 QRS: -32 QRSD: 92 T: 21 QT: 356 QTc: 393 Interpretive Statements Sinus rhythm Supraventricular bigeminy Left axis deviation Abnormal R-wave progression, early transition Compared to ECG 10/09/2020 10:31:11 Ectopic atrial rhythm no longer present Electronically Signed On 12-15-2020 8:20:40 CDT by Chaz Marley [email or web address] <ELECTRONICALLY SIGNED> By: Chaz Marley MD, [facility] 12/15/20 0820 1859 56 Chaz Marley MD, FAC /EPI
== END 2020-12-14 20:45 | disposition home or self-care (01) ==
LOC: ER 18:51
PROVIDERS: Emergency Medicine
DX: R06.00 Dyspnea, unspecified (principal); I10 Essential (primary) hypertension; J44.9 Chronic obstructive pulmonary disease, unspecified; I48.91 Unspecified atrial fibrillation; M54.2 Cervicalgia; R05 Cough; R42 Dizziness and giddiness; Z98.890 Other specified postprocedural states; Z90.49 Acquired absence of other specified parts of digestive tract

== ENCOUNTER 2021-03-10 09:21 | Emergency (ER) | payer OTHER ==
[~2021-03-10] VITALS: Ht 185.4 cm; Wt 110.7 kg
[~2021-03-10 09:21] MED LIST changes: +[UNRECOGNIZED DRUG - OTHER] PO
[2021-03-10 09:48] LABS: ABSOLUTE NEUTROPHILS 2.9 thou/uL (1.4-8.2); BASOPHILS 1.3 % (0.0-2.0); EOSINOPHILS 2.9 % (0.0-3.0); HEMATOCRIT 44.9 % (42.0-52.0); HEMOGLOBIN 15.5 gm/dL (14.0-18.0); LYMPHOCYTES 21.8 % (24.0-44.0); MCH 32.6 pg (26.0-34.0); MCHC 34.4 g/dL (28.0-37.0); MCV 94.8 fL (80.0-100.0); PLATELET COUNT 213 thou/uL (150-400); RBC 4.74 mil/uL (4.50-6.00); RDW 13.2 % (10.5-14.5); WBC 4.5 thou/uL (4.0-11.0)
--- NOTE | 2021-03-10 09:51 | EKG ---
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
[2021-03-10 09:54] LABS: URINE BILIRUBIN NEGATIVE (Negative); URINE BLOOD NEGATIVE (Negative); URINE CLARITY CLEAR; URINE COLOR YELLOW; URINE GLUCOSE-RANDOM* NEGATIVE (Negative); URINE KETONES NEGATIVE (Negative); URINE LEUKOCYTES-REFLEX NEGATIVE (Negative); URINE NITRITE-REFLEX NEGATIVE (Negative); URINE PROTEIN (DIPSTICK) NEGATIVE (Negative); URINE SPECIFIC GRAVITY 1.025 (1.005-1.035); URINE UROBILINOGEN 0.2 E.U./dl (0.2-1.0)
[2021-03-10 09:56] LABS: CREATININE 1.3 mg/dL (0.7-1.3)
[2021-03-10 10:03] LABS: ALBUMIN 3.6 g/dL (3.4-5.0); TOTAL BILIRUBIN 0.5 mg/dL (0.2-1.0); TOTAL PROTEIN 6.7 g/dL (6.4-8.2)
[2021-03-10 11:09] VITALS: BP 136/79
== END 2021-03-10 11:07 | disposition home or self-care (01) ==
LOC: ER 09:21
PROVIDERS: Emergency Medicine
DX: R42 Dizziness and giddiness (principal); Z20.822 Contact with and (suspected) exposure to COVID-19; J44.9 Chronic obstructive pulmonary disease, unspecified; Z01.84 Encounter for antibody response examination; Z98.52 Vasectomy status; Z79.899 Other long term (current) drug therapy

== ENCOUNTER 2021-04-10 10:22 | Emergency (ER) | payer OTHER ==
[~2021-04-10] VITALS: Ht 185.4 cm; Wt 109.3 kg
[2021-04-10 10:51] LABS: ABSOLUTE NEUTROPHILS 2.5 thou/uL (1.4-8.2); BASOPHILS 0.9 % (0.0-2.0); EOSINOPHILS 2.5 % (0.0-3.0); HEMATOCRIT 46.4 % (42.0-52.0); LYMPHOCYTES 23.7 % (24.0-44.0); MCH 32.7 pg (26.0-34.0); MCHC 34.5 g/dL (28.0-37.0); MCV 94.9 fL (80.0-100.0); MONOCYTES 8.8 % (1.0-8.0); PLATELET COUNT 225 thou/uL (150-400); POLYS 64.1 % (36.0-66.0); RBC 4.89 mil/uL (4.50-6.00); RDW 13.2 % (10.5-14.5); WBC 3.8 thou/uL (4.0-11.0)
[2021-04-10 11:05] LABS: CALCIUM 8.8 mg/dL (8.5-10.1); CREATININE 1.3 mg/dL (0.7-1.3); POTASSIUM 4.1 mmol/L (3.5-5.1)
[2021-04-10 11:15] LABS: ALBUMIN 3.7 g/dL (3.4-5.0); TOTAL BILIRUBIN 0.9 mg/dL (0.2-1.0); TOTAL PROTEIN 6.9 g/dL (6.4-8.2)
[2021-04-10 12:51] VITALS: BP 137/74
[2021-04-10] MEDS ORDERED: AZITHROMYCIN500 MG PO (13:25)
[2021-04-10] MEDS ORDERED: TESSALON PERLE100 MG PO (13:25)
[2021-04-10] MEDS ORDERED: PREDNISONE 20 M20 MG PO (13:25)
--- NOTE | 2021-04-11 09:21 | EKG ---
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 : 1960 Requested By: Kulwinder Snyder Order Number: [id number] MD: Chaz Marley Measurements Intervals [place] Rate: 86 P: 14 [place]: 154 QRS: -39 QRSD: 87 T: 55 QT: 362 QTc: 433 Interpretive Statements Sinus rhythm Abnormal R-wave progression, early transition Probable left ventricular hypertrophy Compared to ECG 03/10/2021 09:35:42 Left-axis deviation no longer present Electronically Signed On 04-11-2021 9:21:26 CDT by Chaz Marley [email or web address] <ELECTRONICALLY SIGNED> By: Chaz Marley MD, [facility] 04/11/21920 104 40 Chaz Marley MD, FACC /EPI
== END 2021-04-10 13:30 | disposition home or self-care (01) ==
LOC: ER 10:22
PROVIDERS: Emergency Medicine
DX: R05 Cough (principal); Z20.822 Contact with and (suspected) exposure to COVID-19; J44.9 Chronic obstructive pulmonary disease, unspecified; I48.91 Unspecified atrial fibrillation; Z79.899 Other long term (current) drug therapy; Z77.098 Contact with and (suspected) exposure to other hazardous, chiefly nonmedicinal, chemicals

== ENCOUNTER 2021-06-05 17:59 | Emergency (ER) | payer OTHER ==
[~2021-06-05] VITALS: Ht 185.4 cm; Wt 105.7 kg
[~2021-06-05 17:59] MED LIST changes: +AZITHROMYCIN500 MG PO; +PREDNISONE 20 M20 MG PO
[2021-06-05 18:17] VITALS: BP 131/77
[2021-06-05 18:48] LABS: URINE BILIRUBIN NEGATIVE (Negative); URINE BLOOD TRACE (Negative); URINE CLARITY SL CLOUDY; URINE COLOR YELLOW; URINE GLUCOSE-RANDOM* NEGATIVE (Negative); URINE KETONES NEGATIVE (Negative); URINE NITRITE-REFLEX NEGATIVE (Negative); URINE PROTEIN (DIPSTICK) NEGATIVE (Negative); URINE SPECIFIC GRAVITY >= 1.030 (1.005-1.035); URINE UROBILINOGEN 0.2 E.U./dl (0.2-1.0)
[2021-06-05 18:49] LABS: URINE LEUKOCYTES-REFLEX 1+ (Negative)
[2021-06-05 18:55] LABS: SQUAMOUS 0-3 Few /LPF (0-3)
[2021-06-05 18:56] LABS: CASTS None Seen /LPF (None Seen); CRYSTALS None Seen /LPF (None Seen); URINE RBC 3-10 Few /HPF (NONE SEEN)
[2021-06-05] MEDS ORDERED: CIPROFLOXACIN500 M1 PO (19:39)
--- NOTE | 2021-06-06 07:11 | EKG ---
[facility] [place] [address] ELECTROCARDIOGRAM REPORT Name: PALMIRA NUÑEZ Room #: DEP MOLLY Padron#: [id number] Admission: 06/05/21 Attend Phys: Discharge: 06/05/21 Date of : 56 Report #: [id number] [facility] ED Test Date: 2021-06-05 Test Time: 18:21:12 Pat Name: PALMIRA NUÑEZ Department: Room: Gender: M Photograph Enlarger: BERNARDO : 1960 Requested By: Kulwinder Snyder Order Number: [id number] MD: Chaz Marley Measurements Intervals [place] Rate: 94 P: 31 [place]: 163 QRS: -28 QRSD: 85 T: 73 QT: 332 QTc: 416 Interpretive Statements Sinus rhythm Borderline left axis deviation Abnormal R-wave progression, early transition Borderline T wave abnormalities Compared to ECG 04/10/2021 10:41:41 T-wave abnormality now present Electronically Signed On 06-06-2021 7:10:48 PULMONOLOGY PHYSICIAN by Chaz Marley [email or web address] <ELECTRONICALLY SIGNED> By: Chaz Marley MD, [facility] 06/06/21 0710 20 20 Chaz Marley MD, FACC /EPI
== END 2021-06-05 20:03 | disposition home or self-care (01) ==
LOC: ER 17:59
PROVIDERS: Emergency Medicine
DX: J06.9 Acute upper respiratory infection, unspecified (principal); Z20.822 Contact with and (suspected) exposure to COVID-19; N39.0 Urinary tract infection, site not specified; R05.9 Cough, unspecified; J44.9 Chronic obstructive pulmonary disease, unspecified; I48.91 Unspecified atrial fibrillation; Z90.89 Acquired absence of other organs; Z79.891 Long term (current) use of opiate analgesic; Z79.899 Other long term (current) drug therapy